=== PATIENT | female | born 1985 | race African-American/Black ===

== ENCOUNTER 2020-06-25 07:49 | Emergency (ER) | payer OTHER ==
[~2020-06-25 07:49] MED LIST: FLEXERIL5 MG PO; MEDROL 4MG DOSEP4 MG PO
[2020-06-25] MEDS ORDERED: NORCO 5-325 TA1 EACH PO (10:06)
[2020-06-25] MEDS ORDERED: MEDROL 4MG DOSEP4 MG PO (10:06)
[2020-06-25] MEDS ORDERED: ROBAXIN750 MG PO (10:06)
== END 2020-06-25 11:00 | disposition home or self-care (01) ==
LOC: FER 07:49
DX: M51.26 Other intervertebral disc displacement, lumbar region (principal); M47.816 Spondylosis without myelopathy or radiculopathy, lumbar region; M43.16 Spondylolisthesis, lumbar region
CPT/HCPCS: 72131; J1170; J2405